=== PATIENT | female | born 1975 | race Caucasian/White ===

== ENCOUNTER 2022-06-07 08:00 | Emergency (ER) | payer OTHER ==
[~2022-06-07] VITALS: Ht 167.6 cm; Wt 102.1 kg
[2022-06-07 08:29] VITALS: BP 139/89
[2022-06-07] MEDS ORDERED: KETOROLAC TROMETHAMINE INJ 30 MG/ML VIAL IM ONE (08:30)
[2022-06-07] MEDS ORDERED: CYCLOBENZAPRINE 10 MG TABLET PO ONE (08:30)
[2022-06-07] MEDS ORDERED: KETOROLAC TROMETHAMINE INJ 30 MG/ML VIAL ONE (08:34)
[2022-06-07] MEDS ORDERED: CYCLOBENZAPRINE 10 MG TABLET ONE (08:34)
--- NOTE | 2022-06-07 09:00 | NUR ---
Ambulatory- Gait even and Stable NO obvious distress. +Bruises to bilateral extremities. Iced
[2022-06-07] MEDS ORDERED: IBUP-1957 PO (11:17)
[2022-06-07] MEDS ORDERED: CYCL5TAB PO (11:17)
--- NOTE | 2022-06-07 11:33 | NUR ---
Patient discharged to home in stable condition. Written and verbal after care instructions given. Patient verbalizes understanding of instruction.
== END 2022-06-07 11:33 | disposition home or self-care (01) ==
LOC: ER 08:10
DX: S13.4XXA Sprain of ligaments of cervical spine, initial encounter (principal); S50.812A Abrasion of left forearm, initial encounter; S50.811A Abrasion of right forearm, initial encounter; G43.909 Migraine, unspecified, not intractable, without status migrainosus; Z90.89 Acquired absence of other organs; Z88.5 Allergy status to narcotic agent; Z79.899 Other long term (current) drug therapy; V49.49XA Driver injured in collision with other motor vehicles in traffic accident, initial encounter; Y93.89 Activity, other specified; Y92.413 State road as the place of occurrence of the external cause; Y99.8 Other external cause status
CPT/HCPCS: 99283; 96372; J1885